=== PATIENT | female | born 1970 | race Two or more races ===

== ENCOUNTER 2023-09-21 17:52 | Emergency (ER) | payer OTHER ==
[~2023-09-21] VITALS: Ht 167.6 cm; Wt 81.6 kg
[2023-09-21] MEDS ORDERED: METFORMIN HCL1000 M2 (18:20)
[2023-09-21 23:14] LABS: HEMATOCRIT 40.1 % (36.0-45.00); HEMOGLOBIN 13.5 g/dL (12.0-15.00); MEAN CELL VOLUME 82.5 fL (80.00-100.00); MEAN CORPUSCULAR HEMOGLOBIN 27.7 pg (27.00-32.0); MEAN CORPUSCULAR HGB CONC 33.6 g/dl (32.0-36.0); PLATELET COUNT 272 K/uL (150-450); RED BLOOD COUNT 4.87 M/uL (4.00-6.00); RED CELL DISTRIBUTION WIDTH 13.7 % (11.5-14.5)
[2023-09-22] MEDS ORDERED: AYR SALINE50 ML NASAL (00:18)
[2023-09-22] MEDS ORDERED: FLONASE16 GM NASAL (00:18)
[2023-09-22] MEDS ORDERED: ZYRTEC10 MG PO (00:18)
== END 2023-09-22 00:49 | disposition home or self-care (01) ==
LOC: ER 17:53
PROVIDERS: Emergency Medicine
DX: J06.9 Acute upper respiratory infection, unspecified (principal); J03.80 Acute tonsillitis due to other specified organisms; J45.909 Unspecified asthma, uncomplicated; E11.9 Type 2 diabetes mellitus without complications; Z79.84 Long term (current) use of oral hypoglycemic drugs; Z20.822 Contact with and (suspected) exposure to COVID-19
CPT/HCPCS: 36415; 96372; 99284; J0696

== ENCOUNTER 2025-03-06 14:07 | Emergency (ER) | payer OTHER ==
[~2025-03-06] VITALS: Ht 165.1 cm; Wt 86.2 kg
[~2025-03-06 14:07] MED LIST: AYR SALINE50 ML NASAL; FLONASE16 GM NASAL; METFORMIN HCL1000 M2; ZYRTEC10 MG PO
[2025-03-06 15:16] VITALS: BP 131/78; O2SAT 99
[2025-03-06] MEDS ORDERED: KETOROLAC TROMETHAMINE 30 MG VIAL IM ONE (16:00)
[2025-03-06] MEDS ORDERED: KETOROLAC TROMETHAMINE 30 MG VIAL ONE (16:08)
== END 2025-03-06 20:37 | disposition home or self-care (01) ==
LOC: ER 14:07
DX: M25.561 Pain in right knee (principal); E78.00 Pure hypercholesterolemia, unspecified; E11.9 Type 2 diabetes mellitus without complications; Z79.84 Long term (current) use of oral hypoglycemic drugs
CPT/HCPCS: 73560; 96372; 99283; J1885